=== PATIENT | female | born 1990 | race Caucasian/White ===

== ENCOUNTER 2019-05-17 07:11 | Emergency (ER) | payer OTHER, MEDICAID, SELFPAY ==
[2019-05-17 07:21] VITALS: BP 117/69; PULSE 74; RESP 15; TEMP 36.4; O2SAT 98; BMI 34.3
--- NOTE | 2019-05-17 07:39 | ED.URI ---
HPI - URI/Sore Throat General Chief Complaint: Upper Respiratory Symptoms Stated Complaint: has bronchitis, thinks her ear is infected Time Seen by Provider: 05/17/19 07:30 Source: patient Mode of arrival: Ambulatory History of Present Illness HPI Narrative: 29-year-old woman presents with upper respiratory complaints ongoing for the last 4 days and now worsening left ear pain. She was seen at [facility] emergency department 4 days ago was told that she had bronchitis. Had a chest x-ray 3 days ago and was again told she did not have pneumonia. She has had no fever a slight cough no wheezing moderate so throat minor rhinorrhea nasal congestion no sinus pain and left ear pain with no hearing loss no discharge MD Complaint: cough and sore throat Duration: progressively worsening Severity: moderate Severity scale (1-10): 4 Treatments prior to arrival: acetaminophen and ibuprofen Related Data Allergies Allergy/AdvReac Type Severity Reaction Status Date / Time Sulfa (Sulfonamide Allergy Verified 05/17/19 07:21 Antibiotics) Review of Systems Review of Systems Narrative: Nonsmoker Constitutional Constitutional: Denies fatigue, Denies headache(s), Denies lethargy, Reports malaise, Denies night sweats and Denies weakness ENT Ears, Nose, Mouth, and Throat: Denies headache(s), Reports sore throat and Denies throat swelling Neurologic Neurologic: Denies headache(s) and Denies weakness Endocrine Endocrine: Denies fatigue Allergic/Immunologic Allergic/Immunologic: Denies throat swelling Patient History Substance Use Type: does not use Exam Initial Vital Signs Initial Vital Signs: Vital Signs Temperature 97.5 F L 05/17/19 07:21 Pulse Rate 74 05/17/19 07:21 Respiratory Rate 15 05/17/19 07:21 Blood Pressure 117/69 05/17/19 07:21 Pulse Oximetry 98 05/17/19 07:21 Const General: cooperative and healthy appearing Nutritional Appearance: well nourished Orientation: oriented x3 Neck Lymphatic: No lymphadenopathy Resp Effort & Inspection: normal respiratory effort and able to speak in complete sentences Cardio Rate: regular rate Rhythm: regular rhythm Heart Sounds: no murmurs GI Palpation: soft Skin Other: Well perfused Extrem Other: Three puncture wounds in the right thenar eminence. Minimal surrounding erythema around the puncture wounds. No abscess appreciated. No extending lymphadenopathy. She does have full range of motion all fingers thumb and wrist. There is no axillary adenopathy. Course Vital Signs Vital signs: Vital Signs - 8 hr 05/17/19 07:21 Temperature 97.5 F L Pulse Rate 74 Respiratory Rate 15 Blood Pressure 117/69 Pulse Oximetry 98 Discharge Plan Departure Patient Disposition: Home Clinical Impression: Viral infection Otitis media Qualifiers: Otitis media type: serous Chronicity: acute Laterality: bilateral Recurrence: non-recurrent Qualified Code(s): H65.03 - Acute serous otitis media, bilateral Discharge Date/Time: 05/17/19 08:01 Instructions: DI for Viral Upper Respiratory Infection -- Adult Activity Restrictions/Additional Instructions: Thank you for coming in today. I am sorry that you had been feeling unwell all week. I believe that all of your doctors so far have been perfectly correct in saying that this is a viral syndrome. You do have fluid behind both ears which goes along with a viral syndrome but is not a bacterial infection and you do not need antibiotics. Sometimes using Afrin, [id number] nasal spray, can help with inflammation in the back of her throat to get year years to drain sooner which will help with the pain. Ibuprofen and Tylenol can help as well. If you develop a fever or feel that you are getting worse please return for further evaluation I hope you feel better soon Stand Alone Forms: Work Release Note
== END 2019-05-17 08:01 | disposition home or self-care (01) ==
PROVIDERS: Emergency Provider Emergency Medicine
DX: B34.9 Viral infection, unspecified (principal); H65.03 Acute serous otitis media, bilateral
CPT/HCPCS: 99282

== ENCOUNTER 2019-08-10 09:15 | Emergency (ER) | payer OTHER, MEDICAID, SELFPAY ==
[2019-08-10 09:15] VITALS: BP 112/60; PULSE 94; RESP 18; TEMP 36.8; O2SAT 99
--- NOTE | 2019-08-10 09:23 | ED.NEUROSD ---
HPI - Neuro Symptoms/Deficit General Chief Complaint: Neuro Symptoms/Deficit Stated Complaint: Face is tweaking out, stressed Time Seen by Provider: 08/10/19 09:21 Source: patient and family Mode of arrival: Ambulatory Limitations: no limitations History of Present Illness HPI Narrative: 29-year-old former smoker with history of illicit drug use presents with a chief complaint of a sudden onset left-sided facial numbness and weakness since last night. She denies any other focal neurologic symptoms such as numbness, tingling or weakness of her extremities, trouble with vision or other. She denies any injury or headache. She did recently have a viral upper respiratory infection which has since resolved and states that she has been under significant stress at home. Onset (ago): hour(s) Location: left face History of same: No Severity: moderate Quality: weak Relieving factors: none Exacerbating factors: none Context: gradual onset On Anticoagulants: No Associated symptoms: denies other symptoms Treatments Prior to Arrival: none Related Data Home Medications Medication Instructions Recorded Confirmed No Known Home Medications 08/10/19 08/10/19 Previous Rx's Medication Instructions Recorded prednisone 60 mg PO DAILY 7 Days #21 tab 08/10/19 valacyclovir 1,000 mg PO TID 7 Days #21 tab 08/10/19 Allergies Allergy/AdvReac Type Severity Reaction Status Date / Time Sulfa (Sulfonamide Allergy Verified 08/10/19 09:27 Antibiotics) narcotics AdvReac Uncoded 08/10/19 09:27 Review of Systems Constitutional Constitutional: Denies chills, Denies fatigue, Denies fever(s), Denies frequent falls, Denies lethargy and Denies weakness Eyes Eyes: Denies change in vision, Denies eye discharge, Denies irritation and Denies loss of vision ENT Ears, Nose, Mouth, and Throat: Denies change in voice, Denies dizziness, Denies neck pain, Denies sore throat and Denies throat swelling Cardiovascular Cardiovascular: Denies chest pain, Denies irregular heart rhythm, Denies lightheadedness, Denies palpitations, Denies dyspnea, Denies dyspnea on exertion and Denies orthopnea Respiratory Respiratory: Denies cough, Denies dyspnea, Denies dyspnea on exertion and Denies wheezing Gastrointestinal Gastrointestinal: Denies abdominal pain, Denies change in bowel habits, Denies diarrhea, Denies nausea and Denies vomiting Genitourinary Genitourinary: Denies hematuria, Denies flank pain, Denies urinary incontinence and Denies urinary urgency Musculoskeletal Musculoskeletal: Denies back pain, Denies muscle weakness, Denies neck pain, Denies numbness and Denies tingling Integumentary/Breasts Skin/Breast: Denies pruritus, Denies erythema, Denies rash and Denies wounds Neurologic Neurologic: Denies behavioral changes, Denies confusion, Denies dizziness, Denies frequent falls, Reports focal weakness, Denies loss of vision, Denies numbness, Denies tingling and Denies weakness Psychiatric Psychiatric: Denies anxiety, Denies behavioral changes, Denies confusion, Denies depression, Denies homicidal ideation and Denies suicidal ideation Endocrine Endocrine: Denies fatigue, Denies flushing and Denies palpitations Hematologic/Lymphatic Hematologic/Lymphatic: Denies easy bruising Allergic/Immunologic Allergic/Immunologic: Denies urticaria, Denies throat swelling and Denies wheezing Patient History Social History Smoking Status: Current every day smoker Substance Use Type: does not use Exam Narrative Exam Narrative: GEN: AOx3 and in mild distress EYES: Pupils are equal, round, and reactive to light and accommodation. Extraoccular muscles are intact bilaterally. There is no subconjunctival hemorrhage or exudate. CHEST: Lungs are clear to auscultation bilaterally and free of wheezes, rales, or rhonchi. Heart rate is regular rhythm, there are no murmurs, clicks, rubs, or gallops. There is no chest wall tenderness. ABD: Abdomen is soft and nontender. There is no guarding or rebound. Bowel sounds are normal in all 4 quadrants. There is no mass or organomegaly. EXT: Full painless ROM of all extremities with no loss of sensation or strength. SKIN: Warm, pink, and dry. No erythema or rash NEURO: L sided facial weakness with involvement of forehead suggestiong lower motor neuron lesion. Initial Vital Signs Initial Vital Signs: Vital Signs Temperature 98.3 F 08/10/19 09:15 Pulse Rate 94 H 08/10/19 09:15 Respiratory Rate 18 08/10/19 09:15 Blood Pressure 112/60 08/10/19 09:15 Pulse Oximetry 99 08/10/19 09:15 Scores NIH Stroke Scale Level of Conciousness: Alert, keenly responsive Ask month/age: Answers both questions correctly. Open/close eyes, close hand: Performs both tasks correctly Best gaze horizontal: Normal Visual weston: No visual loss Facial palsy: Partial paralysis, total or near total paralysis of lower face Left arm drift: No drift for full 10 sec Right arm drift: No drift for full 10 sec Left leg drift: No drift for full 10 sec Right leg drift: No drift for full 10 sec Limb ataxia: Absent Sensory on face/arms/legs: Normal, no sensory loss Best language: No aphasia, normal Dysarthria: Normal Extinction or inattention: No abnormality Total NIH Stroke scale score: 2 Course Course Course Narrative: not activated as code stroke as this was clearly a Chambers's Palsy. Vital Signs Vital signs: Vital Signs - 8 hr 08/10/19 09:15 Temperature 98.3 F Pulse Rate 94 H Respiratory Rate 18 Blood Pressure 112/60 Pulse Oximetry 99 MDM - Neuro Symptoms/Deficit MDM Narrative Medical decision making narrative: Return precautions given. Patient offered eye patch but she refused. Strongly recommended eye drops and follow up. Discharge Plan Departure Patient Disposition: Home Clinical Impression: Chambers's palsy Discharge Date/Time: 08/10/19 09:45 Instructions: Chambers Palsy Activity Restrictions/Additional Instructions: *You have been diagnosed with [Chambers's palsy] *What to do: *Take medications as directed: You have been given two prescriptions and we also talked about you getting some over the counter eye drops to help prevent your eye from drying and becoming irritated. *Follow up with your primary care provider in 2-3 days, call for an appointment. Let them know you were seen in the Emergency Department and that we ask that you be seen in follow up *Return to ER if you should have any new, worsening or concerning symptoms Prescriptions: New prednisone 20 mg tablet 60 mg PO DAILY 7 Days Qty: 21 RF: 0 valacyclovir 1 gram tablet 1,000 mg PO TID 7 Days Qty: 21 RF: 0 No Action No Known Home Medications RF: 0 Referrals: [facility] [Outside]
== END 2019-08-10 09:45 | disposition home or self-care (01) ==
LOC: ED 09:52
PROVIDERS: Emergency Provider Emergency Medicine
DX: G51.0 Bell's palsy (principal)
CPT/HCPCS: 99281; 99283

== ENCOUNTER → 2020-07-02 12:02 | Outpatient (CLI) | payer OTHER, MEDICAID, SELFPAY ==
[2020-07-02 13:08] LABS: Add Manual Diff / Slide Review NO; Basophils Absolute Auto 0 /uL (0-100); Basophils Percent Auto 0.4 % (0-2); Eosinophils Absolute Auto 500 /uL (0-450); Eosinophils Percent Auto 5.4 % (2-4); Hematocrit 43.3 % (36-46); Hemoglobin 14.6 g/dL (12.0-16.0); Lymphocytes Absolute Auto 2000 /uL (1100-4500); Mean Corpuscular HGB Conc 33.8 % (30-36); Mean Corpuscular Hemoglobin 30.2 PG (26-34); Mean Corpuscular Volume 89.2 fL (80-100); Monocytes Absolute Auto 300 /uL (0-900); Monocytes Percent Auto 3.7 % (3-14); Neutrophils Absolute Auto 6000 /uL (1500-7000); Neutrophils Percent Auto 67.5 % (50-75); Platelet Count 206 X10^3/uL (150-400); Red Blood Cell Count 4.86 X10^6/uL (4.0-5.2); Red Cell Distribution Width 13.3 % (11.6-14.8); White Blood Cell Count 8.9 X10^3/uL (4.5-11.0)
[2020-07-02 13:21] LABS: Alanine Aminotransferase 16 IU/L (<35); Albumin 4.5 g/dL (3.5-5.0); Albumin Globulin Ratio 1.7 (1.0-2.8); Alkaline Phosphatase 56 U/L (38-126); Aspartate Aminotransferase 27 IU/L (14-36); BUN Creatinine Ratio 24.1 (6-22); Bilirubin Total 0.3 mg/dL (0.2-1.3); Blood Urea Nitrogen 13 mg/dL (7-17); Calcium 8.9 mg/dL (8.4-10.2); Carbon Dioxide 26 mmol/L (22-32); Chloride 105 mmol/L (98-107); Cholesterol 154 mg/dL (140-199); Estimated Glomerular Filt Rate > 60.0 mL/min (>60); Globulin 2.7 g/dL (1.7-4.1); Glucose 124 mg/dL (70-100); HDL Cholesterol 52 mg/dL (40-60); HEMOLYSIS < 15 (0-50); LDL Cholesterol Calculated 82 mg/dL (<100); Potassium 4.1 mmol/L (3.4-5.1); Sodium 137 mmol/L (137-145); Total Protein 7.2 g/dL (6.3-8.2); Triglycerides 99 mg/dL (35-150)
[2020-07-02 13:37] LABS: T4 Total Thyroxine 7.93 ug/dL (5.5-11.0)
[2020-07-02 14:25] LABS: Folate 7.2 ng/mL (2.76-20.0); Vitamin B12 397 pg/mL (239-931)
[2020-07-02 15:45] LABS: Vitamin D 25 Hydroxy (D3) 34.5 ng/mL (30.0-100.0)
[2020-07-03 06:13] LABS: Triiodothyronine T3 Total 117 ng/dL (71-180)
== END ==
PROVIDERS: Referring Provider Counselor Mental Health; Visit Provider Counselor Mental Health
DX: F31.12 Bipolar disorder, current episode manic without psychotic features, moderate (principal); F43.10 Post-traumatic stress disorder, unspecified; F15.21 Other stimulant dependence, in remission
CPT/HCPCS: 36415; 80053; 80061; 82306; 82607; 82746; 84436; 84439; 84480; 85025

== ENCOUNTER 2020-10-01 08:43 | Emergency (ER) | payer OTHER, MEDICAID, SELFPAY ==
[2020-10-01 08:54] VITALS: BP 132/77; PULSE 95; RESP 17; TEMP 36.8; O2SAT 99; BMI 27.3
--- NOTE | 2020-10-01 09:02 | ED_ITS ---
HPI - General Adult General Chief complaint: Recheck/Abnormal Lab/Rx Stated complaint: Exposure to Covid Time Seen by Provider: 10/01/20 08:55 Source: patient Mode of arrival: Ambulatory History of Present Illness HPI narrative: Patient here for COVID screening. 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 Patient denies any symptoms. No cough cold congestion fever chills headache. However she needs testing to return back to work. Patient brings her son here for COVID testing as well. He has had 2 days of runny nose and dry cough only. Related Data Home Medications Medication Instructions Recorded Confirmed No Known Home Medications 08/10/19 10/01/20 Allergies Allergy/AdvReac Type Severity Reaction Status Date / Time Sulfa (Sulfonamide Allergy Verified 08/17/19 10:43 Antibiotics) narcotics AdvReac Uncoded 10/01/20 08:56 Review of Systems Review of Systems Narrative: GENERAL: Denies chills, fatigue, malaise, fever, sweats. HEENT: Denies sinus pain, ear pain, sore throat RESPIRATORY: Denies dyspnea, cough CARDIOVASCULAR: Denies chest pain, palpitations GASTROINTESTINAL: Denies nausea, vomiting, abdominal pain : Denies dysuria, frequency, hematuria MUSCULOSKELETAL: denies muscle or bony pain SKIN: Denies rash, skin lesions NEUROLOGIC: Denies weakness, numbness ROS Unobtainable: All systems reviewed & are unremarkable except as noted in HPI and below Patient History Social History Smoking Status: Current every day smoker Smoking Status: Current every day smoker alcohol intake frequency: other Substance Use Type: does not use and former substance user Exam Narrative Exam Narrative: GENERAL: in no distress, not toxic not dyspneic HEAD: Normocephalic. EYES: Pupils equal round No scleral icterus. No injection no discharge NECK: Trachea midline. CARDIOVASCULAR: Regular rate and rhythm without murmurs RESPIRATORY: Clear to auscultation. Breath sounds equal bilaterally. No wheezes, rales, or rhonchi. GASTROINTESTINAL: Abdomen soft, non-tender EXTREMITIES: No gross deformities. BACK: No flank tenderness. NEURO: AOx4. SKIN: Warm and dry PSYCH: Not anxious, is cooperative Initial Vital Signs Initial Vital Signs: Vital Signs Temperature 98.2 F 10/01/20 08:54 Pulse Rate 95 H 10/01/20 08:54 Respiratory Rate 17 10/01/20 08:54 Blood Pressure 132/77 10/01/20 08:54 Pulse Oximetry 99 10/01/20 08:54 Course Course Course Narrative: No new issues during course of stay. Orders Ordered: ED Orders 10/01/20 08:53 COVID19 -Nasal swab/Pre-Proc Stat Reevaluation(s) Reevaluation #1: Patient states she cannot wait here for results as she has appointment 930, in 25 minutes. She will call later for results. Time: 09:06 Vital Signs Vital signs: Vital Signs - 8 hr 10/01/20 08:54 Temperature 98.2 F Pulse Rate 95 H Respiratory Rate 17 Blood Pressure 132/77 Pulse Oximetry 99 Medical Decision Making Differential Diagnosis Differential Diagnosis: Screening for COVID Lab Data Lab results reviewed: Yes I reviewed the patient's lab results. Labs: Lab Results 10/01/20 Range/Units 08:53 SARS-CoV-2 (PCR) Negative (Negative) MDM Narrative Medical decision making narrative: Appropriate for discharge. Patient states she cannot wait here for results of COVID. Patient is asymptomatic. Only here for COVID screening to return back to work. Discharge Plan Departure Patient Disposition: Home Clinical Impression: Encounter for screening for COVID-19 Instructions: COVID-19 Viral Test Activity Restrictions/Additional Instructions: Return if worsening questions or concerns. See family doctor this week for recheck. Prescriptions: No Action No Known Home Medications RF: 0 Referrals: Sherry Rudd FNP-MELISSA [Primary Care Provider] -
[2020-10-01 09:26] LABS: COVID19 -Nasal RAPID Negative (Negative)
== END 2020-10-01 09:11 | disposition home or self-care (01) ==
PROVIDERS: Emergency Provider Emergency Medicine; PCP Nurse Practitioner Family
DX: Z20.822 Contact with and (suspected) exposure to COVID-19 (principal)
CPT/HCPCS: 87635; 99281; 99282; C9803

== ENCOUNTER 2021-04-06 08:49 | Emergency (ER) | payer OTHER, MEDICAID, SELFPAY ==
[2021-04-06 09:32] VITALS: BP 127/71; PULSE 78; RESP 16; TEMP 36.9; O2SAT 99; BMI 29.5
--- NOTE | 2021-04-06 09:54 | ED_ITS ---
HPI - URI/Sore Throat General Chief Complaint: Upper Respiratory Symptoms Stated Complaint: scratchy throat, sob, covid exposure Time Seen by Provider: 04/06/21 09:10 Source: patient Mode of arrival: Ambulatory History of Present Illness HPI Narrative: 31-year-old female smoker presents with her signed and a chief complaint of a runny nose and scratchy throat for the past 2 days or so. She states that about a week ago she was at an event with multiple persons who were confirmed to be COVID positive. She has had her immunizations and wants to be checked. She denies any chest pain or significant shortness of breath. She has had no fever or chills. She denies nausea, vomiting or diarrhea. She denies any dysuria, frequency or urgency. Related Data Home Medications Medication Instructions Recorded Confirmed acyclovir 400 mg tablet 400 mg PO DAILY 04/06/21 04/06/21 bupropion HCl 75 mg tablet 75 mg PO DAILY 04/06/21 04/06/21 lamotrigine 25 mg tablet 50 mg PO DAILY 04/06/21 04/06/21 Allergies Allergy/AdvReac Type Severity Reaction Status Date / Time Sulfa (Sulfonamide Allergy Verified 04/06/21 09:35 Antibiotics) narcotics AdvReac Uncoded 04/06/21 09:35 Review of Systems Review of Systems Narrative: GENERAL: See HPI HEENT: See HPI RESPIRATORY: Denies dyspnea, cough, wheezing, hemoptysis, sputum. CARDIOVASCULAR: Denies chest pain, palpitations, orthopnea, edema, GASTROINTESTINAL: Denies nausea, vomiting, abdominal pain, diarrhea, constipation, melena. : Denies dysuria, frequency, incontinence, hematuria, urinary retention. MUSCULOSKELETAL: denies weakness, joint pain, or bony pain SKIN: Denies rash, skin lesions, or other NEUROLOGIC: Denies weakness, headache, numbness, change in speech, confusion, seizures, incoordination. PSYCHIATRIC: No concerning psychosocial issues. 12 point review of systems is negative except for those stated above Patient History Social History Smoking Status: Current every day smoker Smoking Status: Current every day smoker alcohol intake frequency: other Substance Use Type: does not use and former substance user Exam Narrative Exam Narrative: GEN: AOx3 and in mild distress EYES: Pupils are equal, round, and reactive to light and accommodation. Extraoccular muscles are intact bilaterally. There is no subconjunctival hemorrhage or exudate. CHEST: Lungs are clear to auscultation bilaterally and free of wheezes, rales, or rhonchi. Heart rate is regular rhythm, there are no murmurs, clicks, rubs, or gallops. There is no chest wall tenderness. ABD: Abdomen is soft and nontender. There is no guarding or rebound. Bowel sounds are normal in all 4 quadrants. There is no mass or organomegaly. EXT: Full painless ROM of all extremities with no loss of sensation or strength. SKIN: Warm, pink, and dry. No erythema or rash Initial Vital Signs Initial Vital Signs: Vital Signs Temperature 98.5 F 04/06/21 09:32 Pulse Rate 78 04/06/21 09:32 Respiratory Rate 16 04/06/21 09:32 Blood Pressure 127/71 04/06/21 09:32 Pulse Oximetry 99 04/06/21 09:32 Course Orders Ordered: ED Orders 04/06/21 09:26 COVID19 -Nasal swab/Pre-Proc Stat Vital Signs Vital signs: Vital Signs - 8 hr 04/06/21 09:32 Temperature 98.5 F Pulse Rate 78 Respiratory Rate 16 Blood Pressure 127/71 Pulse Oximetry 99 MDM - URI/Sore Throat Lab Data Labs: Lab Results 04/06/21 Range/Units 09:26 SARS-CoV-2 (PCR) Negative (Negative) Discharge Plan Departure Patient Disposition: Home Clinical Impression: Encounter for screening for COVID-19, Upper respiratory infection, viral Instructions: DI for Viral Upper Respiratory Infection -- Adult Activity Restrictions/Additional Instructions: *You have been diagnosed with [likely viral upper respiratory infection. Your physical exam is very reassuring. COVID test is negative *What to do: *Please continue to take your regular medications as directed. [ ] New medication prescriptions sent to your pharmacy: [ ] [ ] New medication written as a paper prescription [ ] No new medications given *Please follow up with your primary care provider in 2-3 days, call for an appointment. Let them know you were seen in the Emergency Department and that we ask that you be seen in follow up. We will electronically transmit a record of today's note if your PCP is in our system *If you do not have a primary care provider please contact the [facility] Resource line at [phone]. They will ask some questions about your medical history and help get you set up with a doctor in the community. *Return to Emergency Department if you should have any new, worsening or concerning symptoms, such as [fever greater than 101 F, shaking chills, worsening pain, persistent vomiting or other bothersome symptoms] Prescriptions: No Action acyclovir 400 mg tablet 400 mg PO DAILY RF: 0 lamotrigine 25 mg tablet 50 mg PO DAILY RF: 0 bupropion HCl 75 mg tablet 75 mg PO DAILY RF: 0 Referrals: Sherry Rudd FNP-BC [Primary Care Provider] -
[2021-04-06 09:59] LABS: COVID19 -Nasal RAPID Negative (Negative)
== END 2021-04-06 10:12 | disposition home or self-care (01) ==
PROVIDERS: Emergency Provider Emergency Medicine; PCP Nurse Practitioner Family
DX: J06.9 Acute upper respiratory infection, unspecified (principal); Z20.822 Contact with and (suspected) exposure to COVID-19
CPT/HCPCS: 87635; 99281; 99282; C9803